=== PATIENT | female | born 1935 | race Caucasian/White ===

== ENCOUNTER → 2018-01-30 11:05 | Outpatient (CLI) | payer MEDICARE, OTHER, SELFPAY ==
[2018-01-30 12:45] LABS: Absolute Lymphocyte Count 0.91 X10^3/ul (0.83-4.51); Absolute Neutrophil Count 2.5 X10^3/uL (2.0-7.7); Basophil# 0.02 X10^3/uL; Basophil% 0.5 % (0-1); Eosinophils% 2.4 % (0-5); Hematocrit 37.5 % (37-47); Lymphocyte # 0.91 X10^3/ul (4.0); Lymphocyte % 22.1 % (19-41); Mean Corpuscular Hgb 30.2 pg (27.0-32.0); Mean Corpuscular Volume 94.2 fL (81-99); Monocyte# 0.57 X10^3/uL; Monocyte% 13.8 % (0-10); Neutrophil # 2.51 X10^3/uL (2.7-7.7); Platelet Count 202 K/mm3 (150-450); RBC Distribution Width CV 14.2 % (11.6-14.6); Red Blood Count 3.98 M/mm3 (4.2-5.4); White Blood Count 4.1 K/mm3 (4.4-11.0)
[2018-01-30 12:50] LABS: POSITIVE COUNT NO; POSITIVE DIFFERENTIAL NO; POSITIVE MORPHOLOGY NO
[2018-01-30 12:58] LABS: Vitamin D,25 Hydroxy 46.2 ng/mL (29.95-100.01)
[2018-01-30 13:05] LABS: ALB/GLOB Ratio 0.8 RATIO (0.9-2.4); AST(SGOT) 31 U/L (15-37); Alanine Aminotransfer ALT/SGPT 28 U/L (13-56); Albumin, Serum 3.3 g/dL (3.2-5.0); Alkaline Phosphatase 89 U/L (45-117); Anion Gap 7 (5-15); BUN 26 mg/dL (7-18); BUN/Creat Ratio 26.6 RATIO (10-20); Calcium,Total 8.4 mg/dL (8.5-10.1); Chloride 105 mmol/L (98-107); Creatinine, Serum 0.98 mg/dL (0.55-1.02); EST Glomerular Filtration Rate 58 mL/min (>60); Est Glom Filt Rate - Afr Amer 70 mL/min (>60); Globulin 3.9 g/dL (2.2-4.2); Glucose 77 mg/dL (74-106); Potassium 4.4 mmol/L (3.5-5.1); Protein, Total 7.2 g/dL (6.4-8.2); Sodium Level 139 mmol/L (136-145); Thyroid Stim Hormone (TSH) 2.59 uIU/mL (0.358-3.74)
== END ==
PROVIDERS: Family Provider Family Medicine Geriatric Medicine; PCP Family Medicine Geriatric Medicine; Visit Provider Family Medicine Geriatric Medicine
DX: I10 Essential (primary) hypertension (principal); E55.9 Vitamin D deficiency, unspecified
CPT/HCPCS: 36415; 80053; 82306; 84443; 85025

== ENCOUNTER → 2018-08-13 15:26 | Outpatient (CLI) | payer MEDICARE, OTHER, SELFPAY ==
[2018-07-30 15:31] VITALS: BMI 26.0
[2018-08-13 17:27] LABS: Absolute Lymphocyte Count 1.23 X10^3/ul (0.83-4.51); Absolute Neutrophil Count 2.4 X10^3/uL (2.0-7.7); Basophil# 0.03 X10^3/uL; Basophil% 0.7 % (0-1); Eosinophil# 0.13 X10^3/uL; Eosinophils% 2.9 % (0-5); Hematocrit 37.4 % (37-47); Hemoglobin 11.8 g/dl (12.0-15.0); Lymphocyte # 1.23 X10^3/ul (4.0); Lymphocyte % 27.5 % (19-41); Mean Corp Hgb Conc 31.6 g/gl (32-36); Mean Corpuscular Hgb 29.7 pg (27.0-32.0); Mean Corpuscular Volume 94.2 fL (81-99); Mean Platelet Vol. 10.4 fl (6.2-12.0); Monocyte# 0.63 X10^3/uL; Monocyte% 14.1 % (0-10); Neutrophil # 2.44 X10^3/uL (2.7-7.7); Neutrophil % 54.6 % (47-70); Platelet Count 216 K/mm3 (150-450); RBC Distribution Width CV 14.3 % (11.6-14.6); RBC Distribution Width SD 47.3 fl (35.1-43.9); Red Blood Count 3.97 M/mm3 (4.2-5.4); White Blood Count 4.5 K/mm3 (4.4-11.0)
[2018-08-13 17:32] LABS: POSITIVE COUNT NO; POSITIVE DIFFERENTIAL NO; POSITIVE MORPHOLOGY NO
[2018-08-13 17:47] LABS: Vitamin D,25 Hydroxy 47.1 ng/mL (29.95-100.01)
[2018-08-13 17:51] LABS: ALB/GLOB Ratio 0.8 RATIO (0.9-2.4); AST(SGOT) 30 U/L (15-37); Alanine Aminotransfer ALT/SGPT 31 U/L (13-56); Albumin, Serum 3.4 g/dL (3.2-5.0); Alkaline Phosphatase 117 U/L (45-117); Anion Gap 7 (5-15); BUN 27 mg/dL (7-18); BUN/Creat Ratio 26.7 RATIO (10-20); Chloride 105 mmol/L (98-107); Creatinine, Serum 1.01 mg/dL (0.55-1.02); EST Glomerular Filtration Rate 56 mL/min (>60); Est Glom Filt Rate - Afr Amer 67 mL/min (>60); Glucose 95 mg/dL (74-106); Potassium 4.3 mmol/L (3.5-5.1); Protein, Total 7.4 g/dL (6.4-8.2); Sodium Level 136 mmol/L (136-145); Thyroid Stim Hormone (TSH) 3.03 uIU/mL (0.358-3.74)
--- OUTSIDE RECORDS SUMMARY | 2018-10-15 21:35 | XMS RPT_ITS ---
:1935 Author Organization OHIP Care Team Providers Name Role Phone Itz Don Attending Unavailable Leonel, Juan Daniel Chi Referring Unavailable Leonel, Juan Daniel Chi Attending Unavailable Leonel, Juan Daniel Chi Primary Care Unavailable Mona Coyne Attending Unavailable [place], Amelia [place] Attending Unavailable Leonel, Juan Daniel Chi Referring Unavailable Leonel, Juan Daniel Chi Primary Care Unavailable Leonel, Juan Daniel Chi Attending Unavailable Leonel, Juan Daniel Chi Primary Care Unavailable PROBLEMS PROBLEMS DATE TYPE CONDITION / CODE ATTENDING STATUS SOURCE 10/23/2017 Unknown I51.81 - Paul Cuello Active [place] [facility] I51.81(ICD-10) Repository PROCEDURES PROCEDURES No Procedure Records FoundRESULTS RESULTS CBC W/DIFF, AUTOMATED Collected: 08/13/2018 Status: F Source: [place] 3:29 PM [facility] REPOSITORY TYPE CODE TESTS RESULT OUT OF RANGE REFERENCE UNITS LAB L100.1000 4.4-11.0 K/mm3 Normal WBC 4.5 LAB L100.1200 4.2-5.4 M/mm3 Low RBC 3.97 LAB L100.1300 12.0-15.0 g/dl Low HGB 11.8 LAB L100.1400 37-47 % Normal HCT 37.4 LAB L100.1500 81-99 fL Normal MCV 94.2 LAB L100.1600 27.0-32.0 pg Normal MCH 29.7 LAB L100.1700 32-36 g/gl Low MCHC 31.6 LAB L100.1810 11.6-14.6 % Normal RDW CV 14.3 LAB L100.1820 35.1-43.9 fl High RDW SD 47.3 LAB L100.1900 150-450 K/mm3 Normal PLT 216 LAB L100.2000 6.2-12.0 fl Normal MPV 10.4 LAB L100.2100 47-70 % Normal NEUT% 54.6 LAB L100.2200 19-41 % Normal LY% 27.5 LAB L100.2300 0-10 % High MONO% 14.1 LAB L100.2400 0-5 % Normal EO% 2.9 LAB L100.2500 0-1 % Normal BASO% 0.7 LAB L100.2550 0.0-0.9 % Normal IM GRAN % 0.200 Result Comment: IG% - Immature Granulocytes (promyelocytes, myelocytes and metamyelocytes) > 1% indicates that a LEFT SHIFT is Present. LAB L100.2620 2.0-7.7 X10 3/uL Normal Absolute Neut 2.4 LAB L100.2720 0.83-4.51 X10 3/ul Normal Absolute Lymph 1.23 Performed By: #### L100.0100 #### [facility] [address] [place], [address] VITAMIN D,25 HYDROXY Collected: 08/13/2018 Status: F Source: S[place] 3:29 PM [facility] REPOSITORY TYPE CODE TESTS RESULT OUT OF RANGE REFERENCE UNITS LAB L506.1000 29.95-100.01 ng/mL Normal Vitamin D 47.1 25-OH Result Comment: Vitamin D 25(OH) Status Range Deficiency <20 ng/mL (50nmol/L) Insuffciency 20 - 30 ng/mL (50 - 75 nmol/L) Sufficiency 30 - 100 ng/mL (75 - 250 nmol/L) Toxicity >100 ng/mL (>250 nmol/L) Performed By: #### L506.1000 #### [facility] [address] [place], [address] COMPREHENSIVE METABOLIC Collected: 08/13/2018 Status: F Source: SORIN [facility] 3:29 PM [facility] REPOSITORY TYPE CODE TESTS RESULT OUT OF RANGE REFERENCE UNITS LAB L501.0100 74-106 mg/dL Normal GLU 95 Result Comment: Please note revised GLUCOSE reference range effective 2017. LAB L501.1000 7-18 mg/dL High BUN 27 LAB L501.1100 0.55-1.02 mg/dL Normal CREAT,SERUM 1.01 Result Comment: The validity of the calculated GFR AND GFRAA in patients over 70 years has not been determined. Clinical correlation is essential. LAB L501.1110 >60 mL/min Low EST GFR 56 Result Comment: Non- GFR Calc LAB L501.1115 >60 mL/min Normal EST GFR - AA 67 Result Comment: GFR Calc LAB L501.1300 10-20 RATIO High BUN/CRE 26.7 LAB L501.1500 6.4-8.2 g/dL T Normal PROT 7.4 LAB L501.1800 3.2-5.0 g/dL Normal ALB 3.4 LAB L501.1950 2.2-4.2 g/dL Normal GLOB 4.0 LAB L501.2000 0.9-2.4 RATIO Low A/G 0.8 LAB L501.2200 8.5-10.1 mg/dL Low CA 8.0 LAB L501.4100 15-37 U/L Normal AST 30 LAB L501.4305 45-117 U/L Normal ALK P 117 LAB L501.4405 13-56 U/L Normal ALT 31 LAB L501.4600 0.20-1.00 mg/dL T Normal BILI 0.40 LAB L501.5300 136-145 mmol/L NA Normal 136 LAB L501.5600 3.5-5.1 mmol/L K Normal 4.3 LAB L501.5900 98-107 mmol/L CL Normal 105 LAB L501.6100 21.0-32.0 mmol/L Normal CO2 24.0 LAB L501.6200 5-15 Normal GAP 7 Performed By: #### L500.4050, L501.9520 #### [facility] [address] [place], [address] THYROID STIM HORMONE Collected: 08/13/2018 Status: F Source: SORIN (TSH) 3:29 PM [facility] REPOSITORY TYPE CODE TESTS RESULT OUT OF RANGE REFERENCE UNITS LAB L501.9520 0.358-3.74 uIU/mL Normal TSH 3.03 Performed By: #### L500.4050, L501.9520 #### [facility] [address] [place], [address] URGENT CARE VISIT Observed: 07/30/2018 Status: F Source: S[place]IN REPORT 3:44 PM [facility] REPOSITORY [facility] [address] [place] [address] [address] [place], [place] [address] OFFICE VISIT Date of Service: 07/30/18 MR#: [id number] Acct: [id number] Name: WYATT MARTINEZ Rep #: [id number] : 1935 Provider: Itz LOPEZ Age/Sex: 83/F Location: [facility] Status: Signed Intake Vital Signs07/30/18 Height 5 ft 1 in 07/30/18 Weight: 138 lb 07/30/18 Body Mass Index (BMI) 26.0 07/30/18 Blood Pressure 112/68 Intake Visit Reasons: SORE THROAT Chief Complaint: Follow-up visit. Allergies ciprofloxacin [From Cipro] Allergy (Verified 07/30/18 15:32) Other ciprofloxacin HCl [From Cipro] Allergy (Verified 07/30/18 15:32) Other amoxicillin trihydrate [From Augmentin] Adverse Reaction (Verified 07/30/18 15:32) Upset Stomach potassium clavulanate [From Augmentin] Adverse Reaction (Verified 07/30/18 15:32) Upset Stomach Medications aspirin 81 mg tablet,delayed release 81 mg PO QDAY 08/27/17 [History Confirmed 07/30/18] lorazepam 0.5 mg tablet 0.5 mg PO .Patient takes rarely PRN tab 08/27/17 [History Confirmed 07/30/18] omeprazole 10 mg capsule,delayed release 10 mg PO .qod cap 10/23/17 [History Confirmed 07/30/18] pravastatin 20 mg tablet 20 mg PO .COMPLEX 10/23/17 [History Confirmed 07/30/18] ranitidine 75 mg tablet 75 mg PO .COMPLEX 10/23/17 [History Confirmed 07/30/18] carvedilol 3.125 mg tablet 3.125 mg PO BID #180 tab 05/21/18 [Rx Confirmed 07/30/18] triamcinolone acetonide 55 mcg nasal spray aerosol 1 spray INTRANASAL BID #10.8 ml 07/30/18 [Rx] PFSH Medical History Hyperlipidemia (Chronic) Hypertension (Chronic) Palpitations (Chronic) Abnormal electrocardiogram (Chronic) 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 Details: WYATT MARTINEZ, is a 83 F who presents to the office today for complaint of nasal drainage and sore throat for the past 3 days. Patient states that her sore throat seems to improve overnight and then worsened throughout the day as she talks. She denies any sinus pain or pressure and reports that she has been using Zicam as well as several other kyao-shx-uzjyddg medications with no results. She denies fever, chills, sweats. No nausea, vomiting, diarrhea. No known ill contacts. No other associated symptoms or alleviating/aggravating factors. ROS Const Constitutional: No chills, fever(s), fatigue, abnormal sleep pattern or headache(s) Eyes Eyes: No change in vision or discharge ENT ENT: Positive for nasal congestion, nasal discharge and sore throat; no ear pain, ear discharge, headache(s) or facial pain Resp Respiratory: No shortness of breath or chest congestion Cardio Cardiology: No chest pain at rest, chest pain with exertion or shortness of breath Skin Skin: No wounds or lesions Neuro Neurology: No behavioral changes, confusion or headache(s) Psych Psychiatric: No behavioral changes, No confusion, No abnormal sleep pattern Endo Endocrine: No fatigue Exam Const General: cooperative, healthy appearing [facility] Head: normocephalic, atraumatic, normal to inspection Ears: hearing grossly normal bilaterally Nose: nasal discharge clear Face and sinus: face symmetric, normal facial exam Mouth: oral mucosae normal Throat: posterior oropharynx normal Eyes General: appearance normal, both eyes and all related structures Visual Garcia: normal visual garcia by confrontation Pupils: PERRL Resp Effort AND Inspection: normal respiratory effort Auscultation: Bilateral: Clear to Auscultation Cardio Palpation: normal PMI Rate: regular rate Rhythm: regular rhythm Skin General: no rashes or lesions noted Neuro General: alert, CN's II-XI intact bilaterally Psych Appearance: grossly normal Mental Status: mental status grossly normal Assessment AND Plan Problems 1. URI, acute J06.9 Status Acute Plan Nasacort as prescribed today. Encouraged to get plenty of rest, drink lots of clear liquids, and use Tylenol or Ibuprofen (unless contraindicated) for fever and comfort. Patient also educated on other symptomatic management techniques. To be seen in 7-10 days if no improvement; sooner if worsening of symptoms. Patient advised of potential red flags and when appropriate to report to the ED. Patient verbalized understanding and agreement with all the above. Medications New: triamcinolone acetonide (Nasacort) administer into 1 spray Intranasal BID 10.8 mL 0RF each nostril Coding Level of Care Code Off vis,new,level 3 Diagnoses URI, acute J06.9 07/30/18 1544 <Electronically signed by Itz LOPEZ> Date Itz LOPEZ Cosigner Signature: Date (if applicable) CC: EVITA W/DIFF, AUTOMATED Collected: 01/30/2018 Status: F Source: [place] 11:05 AM [facility] REPOSITORY TYPE CODE TESTS RESULT OUT OF RANGE REFERENCE UNITS LAB L100.1000 4.4-11.0 K/mm3 Low WBC 4.1 LAB L100.1200 4.2-5.4 M/mm3 Low RBC 3.98 LAB L100.1300 12.0-15.0 g/dl Normal HGB 12.0 LAB L100.1400 37-47 % Normal HCT 37.5 LAB L100.1500 81-99 fL Normal MCV 94.2 LAB L100.1600 27.0-32.0 pg Normal MCH 30.2 LAB L100.1700 32-36 g/gl Normal MCHC 32.0 LAB L100.1810 11.6-14.6 % Normal RDW CV 14.2 LAB L100.1820 35.1-43.9 fl High RDW SD 47.0 LAB L100.1900 150-450 K/mm3 Normal PLT 202 LAB L100.2000 6.2-12.0 fl Normal MPV 10.0 LAB L100.2100 47-70 % Normal NEUT% 61.0 LAB L100.2200 19-41 % Normal LY% 22.1 LAB L100.2300 0-10 % High MONO% 13.8 LAB L100.2400 0-5 % Normal EO% 2.4 LAB L100.2500 0-1 % Normal BASO% 0.5 LAB L100.2550 0.0-0.9 % Normal IM GRAN % 0.200 Result Comment: IG% - Immature Granulocytes (promyelocytes, myelocytes and metamyelocytes) > 1% indicates that a LEFT SHIFT is Present. LAB L100.2620 2.0-7.7 X10 3/uL Normal Absolute Neut 2.5 LAB L100.2720 0.83-4.51 X10 3/ul Normal Absolute Lymph 0.91 Performed By: #### L100.0100 #### [facility] [place], [id number] VITAMIN D,25 HYDROXY Collected: 01/30/2018 Status: F Source: [place] 11:05 AM [facility] REPOSITORY TYPE CODE TESTS RESULT OUT OF RANGE REFERENCE UNITS LAB L506.1000 29.95-100.01 ng/mL Normal Vitamin D 46.2 25-OH Result Comment: Vitamin D 25(OH) Status Range Deficiency <20 ng/mL (50nmol/L) Insuffciency 20 - 30 ng/mL (50 - 75 nmol/L) Sufficiency 30 - 100 ng/mL (75 - 250 nmol/L) Toxicity >100 ng/mL (>250 nmol/L) Performed By: #### L506.1000 #### [facility] [place], [address] COMPREHENSIVE METABOLIC Collected: 01/30/2018 Status: F Source: SORIN [facility] 11:05 AM [facility] REPOSITORY TYPE CODE TESTS RESULT OUT OF RANGE REFERENCE UNITS LAB L501.0100 74-106 mg/dL Normal GLU 77 Result Comment: Please note revised GLUCOSE reference range effective 2017. LAB L501.1000 7-18 mg/dL High BUN 26 LAB L501.1100 0.55-1.02 mg/dL Normal CREAT,SERUM 0.98 Result Comment: The validity of the calculated GFR AND GFRAA in patients over 70 years has not been determined. Clinical correlation is essential. LAB L501.1110 >60 mL/min Low EST GFR 58 Result Comment: Non- GFR Calc LAB L501.1115 >60 mL/min Normal EST GFR - AA 70 Result Comment: GFR Calc LAB L501.1300 10-20 RATIO High BUN/CRE 26.6 LAB L501.1500 6.4-8.2 g/dL T Normal PROT 7.2 LAB L501.1800 3.2-5.0 g/dL Normal ALB 3.3 LAB L501.1950 2.2-4.2 g/dL Normal GLOB 3.9 LAB L501.2000 0.9-2.4 RATIO Low A/G 0.8 LAB L501.2200 8.5-10.1 mg/dL Low CA 8.4 LAB L501.4100 15-37 U/L Normal AST 31 LAB L501.4305 45-117 U/L Normal ALK P 89 LAB L501.4405 13-56 U/L Normal ALT 28 LAB L501.4600 0.20-1.00 mg/dL T Normal BILI 0.40 LAB L501.5300 136-145 mmol/L NA Normal 139 LAB L501.5600 3.5-5.1 mmol/L K Normal 4.4 LAB L501.5900 98-107 mmol/L CL Normal 105 LAB L501.6100 21.0-32.0 mmol/L Normal CO2 27.0 LAB L501.6200 5-15 Normal GAP 7 Performed By: #### L500.4050, L501.9520 #### [facility] [address] [place], [address] THYROID STIM HORMONE Collected: 01/30/2018 Status: F Source: [place] (TSH) 11:05 AM [facility] REPOSITORY TYPE CODE TESTS RESULT OUT OF RANGE REFERENCE UNITS LAB L501.9520 0.358-3.74 uIU/mL Normal TSH 2.59 Performed By: #### L500.4050, L501.9520 #### [facility] [address] [place], [address] CARDIOLOGY VISIT Observed: 10/23/2017 Status: F Source: S[place] REPORT 3:52 PM [facility] REPOSITORY [facility] [address] [place] [address] OFFICE VISIT Date of Service: 10/23/17 MR#: [id number] Acct: [id number] Name: WYATT MARTINEZ Rep #: [id number] : 1935 Provider: Paul Cuello MD Age/Sex: 82/F [place] [facility] [place] Status: Signed [facility] Chief Complaint: Follow-up visit. Details: WYATT MARTINEZ, is a 82 F who presents to the office today for a follow-up visit. She is a lady with a history of tach with tubal cardiomyopathy hyperlipidemia which has since improved her last echocardiogram last year demonstrated an ejection fraction of 53% she is currently only on the beta-brigitte and she says that occasionally when she gets up quickly she gets dizzy. She has not had any syncopal episode no neck arm or jaw discomfort suggest angina. She has been compliant with all her other medications. Her physical exam today demonstrates clear lung garcia regular rate and rhythm and no pedal edema. Intake Vital Signs10/23/17 Height 5 ft 1 in 10/23/17 Weight: 140 lb 10/23/17 Body Mass Index (BMI) 26.4 10/23/17 Blood Pressure 140/64 Intake Visit Reasons: 1 Y FU (we moved from 2-8) Accompanied by: Allergies ciprofloxacin [From Cipro] Allergy (Verified 10/23/17 15:29) Other ciprofloxacin HCl [From Cipro] Allergy (Verified 10/23/17 15:29) Other amoxicillin trihydrate [From Augmentin] Adverse Reaction (Verified 10/23/17 15:29) Upset Stomach potassium clavulanate [From Augmentin] Adverse Reaction (Verified 10/23/17 15:29) Upset Stomach Medications aspirin 81 mg tablet,delayed release 81 mg PO QDAY 08/27/17 [History Confirmed 10/23/17] carvedilol 3.125 mg tablet 3.125 mg PO BID 08/27/17 [History Confirmed 10/23/17] lorazepam 0.5 mg tablet 0.5 mg PO .Patient takes rarely PRN tab 08/27/17 [History Confirmed 10/23/17] omeprazole 10 mg capsule,delayed release 10 mg PO .qod cap 10/23/17 [History Confirmed 10/23/17] pravastatin 20 mg tablet 20 mg PO .COMPLEX 10/23/17 [History Confirmed 10/23/17] ranitidine 75 mg tablet 75 mg PO .COMPLEX 10/23/17 [History Confirmed 10/23/17] Ejection fraction %: 50 to 54 (53% per echo 03/30/2016) [facility] Medical History Hyperlipidemia (Chronic) Hypertension (Chronic) Palpitations (Chronic) Abnormal electrocardiogram (Chronic) 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) 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) Takotsubo syndrome (Chronic) Family History Brother CAD (coronary artery disease) Social History Smoking Status: Never smoker alcohol intake: never ROS Const Const: Positive for other (Feels well, just back from winter in [place]); negative for fatigue, weakness, body ache, fever(s), headache(s), chills, frequent falls, night sweats, daytime sleepiness, difficulty sleeping, excessive sweating, weight gain, weight loss, increased appetite, poor appetite or anorexia Eyes Eyes: Negative for blind spots, loss of peripheral vision, transient loss of vision, blurry vision, change in vision, double vision, floaters, tunnel vision or other ENT ENT: Negative for headache(s), dizziness, hearing loss, tinnitus, Nosebleed/epistaxis, balance problems, post nasal drip, lip swelling, tongue swelling, bleeding gums, hoarseness, neck pain, dry mouth or other Cardio Chest Pain: No Resp Respiratory: Negative for SOB with activity, SOB at rest, SOB orthopnea\SOB lying down, Coughing up blood/hemoptysis, chest congestion, pain on inspiration, snoring, stridor, wheezing, crackles, paroxysmal nocturnal dyspnea or other GI GI: Negative nausea, vomiting, heartburn, constipation, belching, bloating, cramping, vomiting blood/hematemesis, bright, red blood in stools, black,tarry stools, loose stools, Difficulty Swallowing or other : Negative for hematuria, frequent nighttime urination/ nocturia, erectile dysfunction or abnormal vaginal bleeding Musc Musc: Negative for balance problems, muscle aches/ myalgia, muscle weakness or joint pain Skin Skin: Negative redness, non-healing lesions, rash, unusual bruising, skin ulcer, wounds, jaundice or other Neuro Neuro: Negative for weakness, headache(s), frequent falls, blurry vision, double vision, dizziness, lightheadedness, near syncope, syncope, orthostatic symptoms, confusion, memory loss, restless legs, vertigo, seizures, lack of coordination or other Christiano Hematologic/Lymphatic: Negative for easy bleeding, easy bruising, enlarged lymph nodes or other Endo Endo: Negative for fatigue, excessive sweating, cold intolerance, heat intolerance, flushing, increased thirst/drinking, increased hunger, hair loss, hair growth or other Psych Psych: Negative for anxiety, depression, thoughts of harming anyone, thoughts of harming yourself, visual hallucinations, panic attacks or audible hallucinations Allergy Allergy/Immunology: Negative for lip swelling, Negative for tongue swelling, Negative for rash, Negative for throat swelling, Negative for hives Cardiology Exam Const Appearance: cooperative, healthy appearing, well developed, well groomed and no acute distress Nutritional Appearance: well nourished and average body habitus Orientation: alert, awake and oriented x3 Head Head: normal to inspection, normocephalic and atraumatic Ears: hearing grossly normal bilaterally and external ears normal Nose: external nose normal, nasal mucous membranes and turbinates normal, nares normal, septum normal, no nasal discharge Face and Sinus: face symmetric Mouth: oral mucosae normal, tongue normal, oropharynx normal and moist mucous membranes Teeth and gingiva: dentition normal Throat: posterior oropharynx normal, tonsils normal and uvula midline Eyes General: appearance normal, both eyes and all related structures Eyelids: eyelids normal Conjunctivae: conjunctivae normal Pupils: PERRL, normal by confrontation and accommodation normal EOM: EOM intact bilaterally Neck Neck: normal visual inspection, trachea midline and no JVD JVD: +5 Carotids: normal carotid upstroke and bounding pulses Chest Chest inspection: normal inspection of the chest, symmetric chest movement and normal respiratory effort Auscultation: Bilateral: Clear to Auscultation Cardio Palpation: normal PMI Rate: regular rate Rhythm: regular rhythm Heart sounds: S1 normal, S2 normal and normal, physiologic split S2; negative rub, gallop or murmur GI GI: normal to inspection, soft, no hepatosplenomegaly and bowel sounds present Neuro General: alert, awake, oriented x3, no focal sensory deficit, gait normal and moves all extremities Skin Skin: no rashes or lesions noted Extremities Pulses: Normal: Right Femoral Pulse, Left Femoral Pulse, Right Dorsalis Pedis Pulse, Left Dorsalis Pedis Pulse, Right Posterior Tibial Pulse, Left Posterior Tibial Pulse, Right Radial Pulse, Left Radial Pulse Lower Extremity Edema: None: Bilateral Musculoskel Musculoskeletal: No joint tenderness Psych Psychological: normal affect Assessment AND Plan 1. Takotsubo syndrome I51.81 Plan Her left ventricular ejection fraction as you know has normalized she has had no heart failure symptoms and my recommendation will be to continue the same medical therapy with the beta-brigitte I will still like to see her yearly. Thank you for allowing me to participate in her care. 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) Coding Level of Care Code Off vis,est,level 3 Diagnoses Takotsubo syndrome I51.81 Coding Level of Care Code Off vis,est,level 3 Diagnoses Takotsubo syndrome I51.81 10/23/17 1552 <Electronically signed by Paul Cuello MD> Date Paul Cuello MD Cosigner Signature: Date (if applicable) CC: Juan Daniel Castaneda MD ALLERGIES ALLERGIES DATE TYPE / CODE NAME / CODE REACTION SEVERITY SOURCE 07/30/2018 Drug amoxicillin Upset Stomach Unknown [place] Allergy/416 trihydrate/[id number] Formerly [facility] [id number]([facility] 07([facility] ED CT) Repository 07/30/2018 Drug potassium Upset Stomach Unknown [place] Allergy/416 clavulanate/[id number] Formerly [facility] 016490([facility] 809([facility] ED CT) Repository 07/30/2018 Drug ciprofloxacin Other Unknown [place] Allergy/416 HCl/[id number](RXNO Formerly [facility] 884728([facility] ED CT) Repository 07/30/2018 Drug ciprofloxacin/F0060 Other Unknown [place] Allergy/416 02605(RXNO) Formerly [facility] 745314([facility] ED CT) Repository ENCOUNTERS ENCOUNTERS ADMIT/DISCHARGE ACCOUNT ADMITTING ENCOUNTER LOCATION SOURCE NUMBER CLASS 08/13/2018 [id number] Ambulatory [place] [facility] [address] [facility] ing:POLAB3 Repository 07/30/2018/ [id number] Ambulatory BMSBuilding:B [place] 9 3 [facility] Repository 01/30/2018 [id number] Ambulatory [place] [facility] ing:POLAB3 Repository 10/23/2017/ [id number] Ambulatory BMSBuilding:B [place] 8 0 [facility] Repository 10/22/2017 [id number] Ambulatory BMSBuilding:B [place] 8 [facility] Repository PAYERS PAYERS ENCOUNTER GUARANTOR PAYER SUBSCRIBER SOURCE 08/13/2018 CHELSEA MARTINEZ335 Primary WYATT BALLESTEROS: [place] RUIZ Insurance:MEDICARE [id number] [address]Owh: (330) Number: Repository [phone] () [id number] Date:2018-08-13 08/13/2018 Secondary WYATT L FIKEDOB: [place] Insurance:MEDICAL [id number] Number: Repository [id number] Date:[id number] [address] [address]RQ: 08/13/2018 Tertiary NOT GIVENUNK [place] Insurance:SELF PAY [facility] Number: Effective Repository Date:2018-08-13 07/30/2018 CHELSEA MARTINEZ335 Primary WYATT L FIKEDOB: [place] SARA Insurance:MEDICARE [id number] Hospital [address]Dpq: (330) Number: Repository [phone] () [id number] Date:2018-07-30 07/30/2018 Secondary WYATT L FIKEDOB: [place] Insurance:MEDICAL [id number] Number: Repository [id number] Date:4427[address] [place] [address]NM: 07/30/2018 Tertiary NOT GIVENUNK [place] Insurance:SELF PAY [facility] Number: Effective Repository Date:2018-07-30 01/30/2018 CHELSEA MARTINEZ335 Primary WYATT L FIKEDOB: [place] SARA Insurance:MEDICARE [id number] Hospital [id number]: (330) Number: Repository [phone] () [id number] Date:2018-01-30 01/30/2018 Secondary WYATT L FIKEDOB: [place] Insurance:MEDICAL [id number] [facility] Hospital Number: Repository [id number] Date:7791-05-90PR [address] [address]TV: 01/30/2018 Tertiary NOT GIVENUNK [place] Insurance:SELF PAY [facility] Number: Effective Repository Date:2018-01-30 10/23/2017 CHELSEA POLOKE335 Primary WYATT MARTINEZDOB: [place] SARA Insurance:MEDICARE [id number] Hospital [address]Jpo: (330) Number: Repository [phone] () [id number] Date:2017-06-28 10/23/2017 Secondary WYATT CHOIB: [place] Insurance:MEDICAL [id number] Memorial Hospital Number: Repository [id number] Date:[id number] [id number]: 10/23/2017 Tertiary NOT GIVENUNK [place] Insurance:SELF PAY [facility] Number: Effective Repository Date:2017-08-27 10/22/2017 CHELSEA Isaacs [id number] Primary WYATT MARTINEZDOB: Sorin SARA Insurance[id number] [id number] ([phone] Number: Repository [phone] () [id number] Date:2017-10-22 10/22/2017 Secondary NOT GIVENUNK [place] Insurance:SELF PAY [facility] Number: Effective Repository Date:2017-10-22
== END ==
PROVIDERS: Family Provider Family Medicine Geriatric Medicine; PCP Family Medicine Geriatric Medicine; Visit Provider Family Medicine Geriatric Medicine
DX: I10 Essential (primary) hypertension (principal); E55.9 Vitamin D deficiency, unspecified
CPT/HCPCS: 36415; 80053; 82306; 84443; 85025

== ENCOUNTER → 2023-08-13 | Outpatient (CLI) | payer MEDICARE, OTHER, SELFPAY | END | disposition home or self-care (01) | PROVIDERS: PCP Family Medicine Geriatric Medicine; Visit Provider Family Medicine Geriatric Medicine | DX: N39.0 Urinary tract infection, site not specified (principal) | CPT/HCPCS: 87086; 87088 ==

== ENCOUNTER → 2023-08-20 | Outpatient (CLI) | payer MEDICARE, OTHER, SELFPAY | END | disposition home or self-care (01) | LOC: POLAB3 17:21 | PROVIDERS: PCP Family Medicine Geriatric Medicine; Visit Provider Family Medicine Geriatric Medicine | DX: N39.0 Urinary tract infection, site not specified (principal); R30.0 Dysuria | CPT/HCPCS: 87086 ==

== ENCOUNTER → 2023-10-02 | Outpatient (CLI) | payer MEDICARE, OTHER, SELFPAY ==
[2023-10-02 15:38] LABS: Absolute Lymphocyte Count 1.05 X10^3/uL (0.83-4.51); Absolute Neutrophil Count 3.3 X10^3/uL (2.0-7.7); Basophil# 0.03 X10^3/uL; Basophil% 0.6 % (0-1); Eosinophil# 0.15 X10^3/uL; Eosinophils% 2.9 % (0-5); Hematocrit 37.5 % (37-47); Hemoglobin 11.7 g/dL (12.0-15.0); Lymphocyte # 1.05 X10^3/ul (0.83-4.51); Lymphocyte % 20.3 % (19-41); Mean Corp Hgb Conc 31.2 g/dL (32-36); Mean Corpuscular Hgb 29.3 pg (27.0-32.0); Mean Platelet Vol. 10.1 fl (6.2-12.0); Monocyte# 0.62 X10^3/uL; NRBC Flagged by Analyzer 0 % (0-5); Neutrophil # 3.31 X10^3/uL (2.7-7.7); Neutrophil % 63.8 % (47-70); Platelet Count 235 K/mm3 (150-450); RBC Distribution Width CV 14.5 % (11.6-14.6); RBC Distribution Width SD 49.9 fl (35.1-43.9); Red Blood Count 3.99 M/mm3 (4.2-5.4); White Blood Count 5.2 K/mm3 (4.4-11.0)
[2023-10-02 16:06] LABS: Vitamin D,25 Hydroxy 43.1 ng/mL
[2023-10-02 16:17] LABS: ALB/GLOB Ratio 0.8 RATIO (0.9-2.4); AST(SGOT) 27 U/L (15-37); Alanine Aminotransfer ALT/SGPT 22 U/L (13-56); Albumin, Serum 3.4 g/dL (3.2-5.0); Alkaline Phosphatase 94 U/L (45-117); Anion Gap 6 (5-15); BUN 32 mg/dL (7-18); BUN/Creat Ratio 31.1 RATIO (10-20); Calcium,Total 8.5 mg/dL (8.5-10.1); Chloride 103 mmol/L (98-107); Creatinine, Serum 1.03 mg/dL (0.55-1.02); EST Glomerular Filtration Rate 54 mL/min (>60); Est Glom Filt Rate - Afr Amer 65 mL/min (>60); Glucose 97 mg/dL (74-106); Potassium 4.5 mmol/L (3.5-5.1); Protein, Total 7.4 g/dL (6.4-8.2); Sodium Level 135 mmol/L (136-145); Thyroid Stim Hormone (TSH) 2.95 uIU/mL (0.358-3.74)
== END | disposition home or self-care (01) ==
LOC: POLAB3 15:17
PROVIDERS: PCP Family Medicine Geriatric Medicine; Visit Provider Family Medicine Geriatric Medicine
DX: I10 Essential (primary) hypertension (principal); E55.9 Vitamin D deficiency, unspecified
CPT/HCPCS: 36415; 80053; 82306; 84443; 85025

== ENCOUNTER → 2024-03-10 | Outpatient (CLI) | payer MEDICARE, OTHER, SELFPAY | END | disposition home or self-care (01) | PROVIDERS: PCP Family Medicine Geriatric Medicine; Referring Provider Family Medicine Geriatric Medicine; Visit Provider Family Medicine Geriatric Medicine | DX: N39.0 Urinary tract infection, site not specified (principal) | CPT/HCPCS: 87086; 87088 ==